=== PATIENT | female | born 1965 | race American Indian/Alaskan Native ===

== ENCOUNTER 2021-02-02 10:47 | Day surgery (SDC) | payer MEDICAID ==
--- NOTE | 2021-01-31 13:35 | Anesthesia Consultation ---
Anesthesia Consult and Med Hx Date of service: 02/02/21 - Airway Anesthetic Teeth Evaluation: Chipped, Crowns ROM Head & Neck: Adequate Mental/Hyoid Distance: Adequate Mallampati Class: Class III Intubation Access Assessment: Probably Good - Pre-Operative Health Status ASA Pre-Surgery Classification: ASA3 Proposed Anesthetic Plan: General - Pulmonary Hx Smoking: No Hx Respiratory Symptoms: No (Decreased activity levels because of chemo) Hx Sleep Apnea: No (SNORES -HIGH RISK PAYTON ON PRESCREEN) - Cardiovascular System Hx Hypertension: Yes (Pt reports last ECHO in December and it was ok) Hx Heart Attack/AMI: No - Central Nervous System Hx Neuromuscular Disorder: Yes (Neuropathy) Hx Seizures: No Hx Back Pain: Yes Hx Psychiatric Problems: No - Gastrointestinal Hx Gastroesophageal Reflux Disease: Yes - Endocrine Hx End Stage Renal Disease: No - Hematic Hx Anemia: Yes Hx Sickle Cell Disease: No - Other Systems Hx Alcohol Use: Yes (RARE WINE) Hx Substance Use: No Hx Cancer: Yes (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
[2021-01-31 13:57] LABS: Basophils % (Auto) 0.4 % (0.0-1.8); Blood Urea Nitrogen 10 mg/dL (7-17); Eosinophils % (Auto) 0.4 % (0.0-4.3); Hemolysis Index 0; Lymphocytes # (Auto) 2.6 K/mm3 (1.2-5.4); Lymphocytes % (Auto) 40.1 % (13.4-35.0); Mean Corpuscular HGB Conc 31 % (30-34); Mean Corpuscular Volume 89 fl (79-97); Monocytes # (Auto) 0.7 K/mm3 (0.0-0.8); Monocytes % (Auto) 11.3 % (0.0-7.3); Platelet Count 205 K/mm3 (140-440); Red Blood Count 3.93 M/mm3 (3.65-5.03); Red Cell Distribution Width 16.4 % (13.2-15.2)
[2021-01-31 14:09] LABS: BUN/Creatinine Ratio 14
[~2021-02-02 10:47] MED LIST: LACTATED RINGERS 1,000 ML IV SCH; MIDAZOLAM 2 MG/2 ML INJ IV NR; WATER FOR IRRIG STERILE 1,500 ML BOTTLE IR ONE
[2021-02-02] MEDS ORDERED: dexAMETHasone 20 MG/5 ML VIAL ONE (12:24)
[2021-02-02] MEDS ORDERED: LIDOCAINE MPF (2%) 20 MG/1 ML VIAL 5 ML ONE (12:24)
[2021-02-02] MEDS ORDERED: ONDANSETRON 4 MG/2 ML INJ ONE (12:24)
[2021-02-02] MEDS ORDERED: HYDROmorphone 1 MG/1 ML INJ ONE (12:25)
[2021-02-02] MEDS ORDERED: propofoL 200 MG/20 ML VIAL IV ONE (12:25)
[2021-02-02] MEDS ORDERED: PHENYLEPHRINE/NS 1,000 MCG/10 ML SYRINGE (OR USE) IV ONE (12:30)
[2021-02-02] MEDS ORDERED: WATER FOR IRRIG STERILE 1,500 ML BOTTLE IR ONE ×2 (14:18)
--- NOTE | 2021-02-02 14:30 | Post Operative Note ---
Date of procedure: 02/02/21 Pre-op diagnosis: hematuria hydro Post-op diagnosis: same Findings: resolved Procedure: cysto rpgs Anesthesia: GETA Surgeon: NAVEEN COREAS Pathology: list (urine) Specimen disposition: to lab Condition: stable Disposition: PACU
--- NOTE | 2021-02-02 14:31 | Discharge Summary ---
Short Stay Discharge Plan Activity: other (no straining ) Weight Bearing Status: Full Weight Bearing Diet: low fat, low cholesterol, low salt Special Instructions: other (inc fluids ) Follow up with: BRYAN TODD MD [Primary Care Provider] - 7 Days NAVEEN COREAS MD [Staff Physician] - 7 Days
--- NOTE | 2021-02-02 14:36 | Operative Report ---
DATE OF SURGERY: 02/02/2021 PREOPERATIVE DIAGNOSES: Hematuria, left hydronephrosis. POSTOPERATIVE DIAGNOSES: Hematuria, left hydronephrosis, with resolved hydronephrosis. PROCEDURES: Cystoscopy, retrograde. Urine for cytology. SURGEON: Alejandro Reardon MD ANESTHESIA: General. FINDINGS: This is a woman who presented with intermittent pain, which resolved. I did an ultrasound, did not see hydronephrosis. Previous CT scan showed some hydronephrosis. She has had 2 previous pelvic surgeries. She now presents for cystoscopy. DESCRIPTION OF PROCEDURE: The patient was brought to the operating room and placed on the operating table. Following induction of anesthesia, placed in lithotomy position, prepped and draped in usual sterile fashion. Cystourethroscopy showed a normal bladder. Retrograde showed normal calices with excellent washout under fluoroscopy. Urine was taken for cytology. No lesions were noted. No biopsies were required. Bimanual exam was normal. The patient tolerated the procedure well and brought to recovery in stable condition. TID: [id number] RECEIPT: [id number] SEBASTIAN/NANETTE
--- NOTE | 2021-02-02 15:47 | Post Anesthesia Evaluation ---
- Post Anesthesia Evaluation Patient Participated: Yes Airway Patent: Yes Stable Respiratory Function: Yes Nausea/Vomiting: No Temp > 96.8F: Yes Pain Manageable: Yes Adequeate Hydration: Yes Anesthesia Complications: No Block Receding Appropriately: Not Applicable Patient on Ventilator: No
[2021-02-02 15:54] VITALS: BP 132/84
--- NOTE | 2021-02-02 16:00 | Fluoroscopy Report ---
FL retrograde urography INDICATION / CLINICAL INFORMATION: HEMATURIA. COMPARISON: None available. FINDINGS: Bilateral retrograde examination performed. No gross abnormality. Fluoroscopy time: 18 seconds. Fluoroscopic images: 8. Signer Name: Chris Tee MD Signed: 02/02/2021 3:56 PM Workstation Name: [id number]
== END 2021-02-02 16:05 | disposition home or self-care (01) ==
LOC: OR 10:47
PROVIDERS: ATTEND Urology
DX: R31.29 Other microscopic hematuria (principal); N13.30 Unspecified hydronephrosis; Z20.822 Contact with and (suspected) exposure to COVID-19; I10 Essential (primary) hypertension; K21.9 Gastro-esophageal reflux disease without esophagitis; Z85.3 Personal history of malignant neoplasm of breast; Z92.21 Personal history of antineoplastic chemotherapy; Z79.899 Other long term (current) drug therapy; Z98.890 Other specified postprocedural states
CPT/HCPCS: 36415; 52005; 74420; 80048; 85025; 88112; C1758; C1769; J1100; J1170; J2250; J2370; J2405; J2704; J7120; Q9967; U0003